=== PATIENT | female | born 1950 | race American Indian/Alaskan Native ===

== ENCOUNTER 2018-07-02 17:53 | Emergency (ER) | payer MEDICARE ==
[2018-07-02 18:09] VITALS: BMI 49.9
[2018-07-02] MEDS ORDERED: Sodium Chloride 0.9% 1,000 ML IV STA (18:14)
--- NOTE | 2018-07-02 18:24 | ED PDOC ---
Arrival/HPI - General Time Seen by Provider: 07/02/18 18:09 Historian: Patient - History of Present Illness Narrative History of Present Illness (Text): 07/02/18 18:24 A 67 year old female, whose past medical history includes cholecystectomy, presents to the ED complaining of worsening right side flank pain. Patient reports pain is worse with any slight movement and talking. Patient notes taking pain medication with no improvement. Patient also mentions she saw her PMD for the same complaint 2 days ago, who gave patient muscle relaxers with no improvement. Patient also notes associated nausea that has resolved. Patient denies any fevers, chills, headache, dizziness, chest pain, shortness of breath, dyspnea on exertion, cough, vomiting, diarrhea, neck pain, urinary/bowel changes, or any other complaints. Time/Duration: 24 hours Symptom Course: Unchanged Activities at Onset: Light Context: Home Past Medical History - Provider Review Nursing Documentation Reviewed: Yes Family/Social History - Physician Review Nursing Documentation Reviewed: Yes Family/Social History: No Known Family HX Allergies/Home Meds Allergies/Adverse Reactions: Allergies No Known Allergies Allergy (Verified 07/02/18 18:10) Review of Systems - Physician Review All systems were reviewed & negative as marked: Yes - Review of Systems Respiratory: absent: SOB Cardiovascular: absent: Chest Pain Gastrointestinal: absent: Stool Changes, Vomiting Musculoskeletal: Other (left side flank pain) Skin: absent: Rash Neurological: absent: Headache, Dizziness Endocrine: absent: Diaphoresis Hemo/Lymphatic: absent: Adenopathy Psychiatric: absent: Anxiety, Depression Physical Exam Vital Signs Reviewed: Yes Vital Signs Temp Pulse Resp BP Pulse Ox 07/02/18 18:14 97.9 F 89 19 143/108 H 96 Temperature: Afebrile Blood Pressure: Hypertensive Pulse: Regular Respiratory Rate: Normal Appearance: Positive for: Well-Appearing, Non-Toxic, Comfortable Pain Distress: Moderate Mental Status: Positive for: Alert and Oriented X 3 - Systems Exam Head: Present: Atraumatic, Normocephalic Pupils: Present: PERRL Extroacular Muscles: Present: EOMI Conjunctiva: Present: Normal Respiratory/Chest: Present: Clear to Auscultation, Good Air Exchange. No: Respiratory Distress, Accessory Muscle Use Cardiovascular: Present: Regular Rate and Rhythm, Murmurs, Normal S1, S2, Other (Patient is hypertensive) Back: Present: Other (Right flank is tender to palpation. Patient in moderate pain.) Psychiatric: Present: Alert, Oriented x 3, Normal Insight, Normal Concentration Medical Decision Making ED Course and Treatment: 07/02/18 18:32 Impression: A 67 year old female who presents to the ED for worsening right side flank pain. Plan: -- Labs -- Abdomen/Pelvis CT -- Reglan -- Morphine -- IV Fluids -- Blood Culture -- Urine Culture -- Urinalysis -- Reassess and disposition Progress Notes: - Medication Orders Current Medication Orders: Sodium Chloride (Sodium Chloride 0.9%) 1,000 mls @ 999 mls/hr IV .Q1H1M STA Stop: 07/02/18 19:14 Discontinued Medications Metoclopramide HCl (Reglan) 10 mg IVP STAT STA Stop: 07/02/18 18:15 Morphine Sulfate (Morphine) 6 mg IVP STAT STA Stop: 07/02/18 18:16 - Scribe Statement The provider has reviewed the documentation as recorded by the Vitor Nixon Provider Scribe Attestation: All medical record entries made by the Tiagoibadilson were at my direction and personally dictated by me. I have reviewed the chart and agree that the record accurately reflects my personal performance of the history, physical exam, medical decision making, and the department course for this patient. I have also personally directed, reviewed, and agree with the discharge instructions and disposition.
[2018-07-02 19:29] LABS: BASO # 0.04 K/mm3 (0.0-2.0); BASO % 0.5 % (0.0-3.0); EOS # 0.1 (0.0-0.7); EOS % 0.8 % (1.5-5.0); HEMOGLOBIN 13.3 g/dL (12.0-16.0); LYMPH % 47.5 % (22.0-35.0); MEAN CELL VOLUME 70.7 fl (80.0-105.0); MEAN CORPUSCULAR HEMOGLOBIN 24.2 pg (25.0-35.0); MEAN CORPUSCULAR HGB CONC 34.2 g/dl (31.0-37.0); MEAN PLATELET VOLUME 10.7 fl (7.0-11.0); MONO # 0.5 (0.1-0.6); MONO % 6.1 % (1.0-6.0); RBC 5.5 10^6/uL (3.5-6.1); RED CELL DISTRIBUTION WIDTH 15.7 % (11.5-14.5); WHITE BLOOD COUNT 8.5 10^3/uL (4.5-11.0)
[2018-07-02 19:38] LABS: INR 0.95; PARTIAL THROMBOPLASTIN TIME 31.6 Seconds (26.9-38.3); PROTHROMBIN TIME 10.5 SECONDS (9.4-12.5)
--- NOTE | 2018-07-02 20:09 | ED PDOC ---
Physical Exam Vital Signs Reviewed: Yes Vital Signs Temp Pulse Resp BP Pulse Ox 07/02/18 18:14 97.9 F 89 19 143/108 H 96 Temperature: Afebrile Blood Pressure: Hypertensive Pulse: Regular Respiratory Rate: Normal Appearance: Positive for: Well-Appearing, Non-Toxic, Comfortable Pain Distress: None Mental Status: Positive for: Alert and Oriented X 3 Medical Decision Making ED Course and Treatment: 07/02/18 20:09: Case endorsed to me by Dr. Varner. Pending chemistry and CT, reassessment and disposition.Patient with hx. right lower back discomfort reproducible/aggravated with movement.Denies any abdominal pain.No urinary complaints.No diarrhea.No fever or chills. 07/02/18 21:41 CT Abd/Pelvis IMPRESSION: 1. Hepatomegaly. 2. A gastric sleeve is identified. 3. Status post cholecystectomy. Mild intrahepatic biliary ductal dilatation. 4. Evidence of diffuse enteritis. 5. Status post hysterectomy. 6. Evidence of multilevel degenerative disc disease as described above. 7. Slight retrograde spondylolisthesis of L5 in relationship to L4 as described above. 07/02/18 23:18 Patient states she feels much better.Discomfort much relieved.Will d/c with full follow up care instructions. I have discussed the results and plan with the patient, who expresses understanding. Patient in agreement with plan to be discharged home. Patient is stable for discharge. Patient was instructed to follow up with physician or return if symptoms worsen or new concerning symptoms arise. - Lab Interpretations Lab Results: PT 10.5 SECONDS (9.4-12.5) 07/02/18 19:24 INR 0.95 07/02/18 19:24 APTT 31.6 Seconds (26.9-38.3) 07/02/18 19:24 - RAD Interpretation Radiology Orders: 07/02/18 18:23 ABDOMEN & PELVIS [ABD & PELVIS IV CONTRAST ONLY] [CT] Stat - Medication Orders Current Medication Orders: Ketorolac Tromethamine (Toradol) 30 mg IVP STAT STA Stop: 07/02/18 20:08 Discontinued Medications Diazepam (Valium) 5 mg PO ONCE ONE; Protocol Stop: 07/02/18 19:55 Sodium Chloride (Sodium Chloride 0.9%) 1,000 mls @ 999 mls/hr IV .Q1H1M STA Stop: 07/02/18 19:14 Last Admin: 07/02/18 19:30 Dose: 999 mls/hr eMAR Start Stop Document 07/02/18 19:30 IT (Rec: 07/02/18 19:30 IT [facility] [id number]) Intravenous Solution Start Date 07/02/18 Start Time 19:30 Metoclopramide HCl (Reglan) 10 mg IVP STAT STA Stop: 07/02/18 18:15 Last Admin: 07/02/18 19:30 Dose: 10 mg IVP Administration Document 07/02/18 19:30 IT (Rec: 07/02/18 19:30 [place] [facility] [id number] Charges for Administration # of IVP Administrations 1 Morphine Sulfate (Morphine) 6 mg IVP STAT STA Stop: 07/02/18 18:16 Last Admin: 07/02/18 19:30 Dose: 6 mg MAR Pain Assessment Document 07/02/18 19:30 IT (Rec: 07/02/18 19:30 IT [facility] [id number]) Pain Reassessment Is this a pain reassessment? No Sleep Is patient sleeping during reassessment? No Presence of Pain Presence of Pain Yes Pain Scale Used Protocol: PSCALES Pain Scale Used Numeric IVP Administration Document 07/02/18 19:30 IT (Rec: 07/02/18 19:30 IT [facility] [id number]) Charges for Administration # of IVP Administrations 1 - Scribe Statement The provider has reviewed the documentation as recorded by the Scribe Mojgan Martino Provider Scribe Attestation: All medical record entries made by the Scribe were at my direction and personally dictated by me. I have reviewed the chart and agree that the record accurately reflects my personal performance of the history, physical exam, medical decision making, and the department course for this patient. I have also personally directed, reviewed, and agree with the discharge instructions and disposition. Disposition/Present on Arrival - Present on Arrival Any Indicators Present on Arrival: No History of DVT/PE: No History of Uncontrolled Diabetes: No Urinary Catheter: No History of Decub. Ulcer: No History Surgical Site Infection Following: None - Disposition Have Diagnosis and Disposition been Completed?: Yes Diagnosis: Lower back pain Disposition: HOME/ ROUTINE Disposition Time: 23:19 Patient Plan: Discharge Patient Problems: Current Active Problems Problem Status Onset Lower back pain Acute Condition: STABLE Discharge Instructions (ExitCare): Low Back Pain (DC) Additional Instructions: rest/no strenuous physical activity/take meds as prescribed/follow up with your doctor this week Prescriptions: oxyCODONE/Acetaminophen [Percocet 5/325 mg Tab] 1 ea PO Q6 PRN #14 tab PRN Reason: Pain, Moderate (4-7) Forms: [facility] (Russian)
[2018-07-02 20:18] VITALS: RESP 18
[2018-07-02 20:39] LABS: ALB/GLOB RATIO 1.1 (1.1-1.8); ALT/SGPT 27 U/L (7-56); AST/SGOT 24 U/L (14-36); BLOOD UREA NITROGEN 16 mg/dL (7-21); CALCIUM 9.6 mg/dL (8.4-10.5); GFR NON-AFRICAN AMERICAN > 60; LIPASE 126 U/L (23-300)
[2018-07-02] MEDS ORDERED: Insulin Regular 1 UNITS/0.01 ML ML ONE (20:44)
[2018-07-02] MEDS ORDERED: Iohexol 350 MG/100 ML VIAL ONE (20:45)
[2018-07-02 21:00] LABS: VENOUS BLOOD GAS BASE EXCESS 5.6 mmol/L (0.0-2.0); VENOUS BLOOD GAS PO2 55 mm/Hg (30-55); VENOUS BLOOD PH 7.36 (7.32-7.43)
[2018-07-02 21:12] LABS: TROPONIN I < 0.01 ng/mL
[2018-07-02 22:05] LABS: URINE BILIRUBIN NEGATIVE (NEGATIVE); URINE BLOOD NEGATIVE (NEGATIVE); URINE GLUCOSE (UA) NEGATIVE (NEGATIVE); URINE LEUKOCYTE ESTERASE NEGATIVE Leu/uL (NEGATIVE); URINE PROTEIN NEGATIVE mg/dL (<30 mg/dL)
[2018-07-02 22:06] LABS: URINE APPEARANCE CLEAR (CLEAR); URINE COLOR LIGHT YELLOW (YELLOW)
[2018-07-02 23:48] VITALS: BP 132/65; PULSE 82; TEMP 98.2; O2SAT 96
--- NOTE | 2018-07-03 11:21 | CT ---
Date of service: 07/02/2018 PROCEDURE: CT Abdomen and Pelvis with contrast HISTORY: right sided flank pain COMPARISON: None. TECHNIQUE: Contrast dose: 100 mL Omnipaque 350 Radiation dose: Total exam DLP = 1234.95 mGy-cm. This CT exam was performed using one or more of the following dose reduction techniques: Automated exposure control, adjustment of the mA and/or kV according to patient size, and/or use of iterative reconstruction technique. FINDINGS: LOWER THORAX: Unremarkable. LIVER: Mild hepatic steatosis. Mild intrahepatic biliary dilatation. GALLBLADDER AND BILE DUCTS: Prior cholecystectomy with surgical clips in place. Prominent CBD measuring up to 1.3 cm. PANCREAS: Unremarkable. No gross lesion or ductal dilatation. SPLEEN: Unremarkable. ADRENALS: Unremarkable. No mass. KIDNEYS AND URETERS: Tiny left renal cysts. No hydronephrosis. No solid mass. VASCULATURE: Unremarkable. No aortic aneurysm. No aortic atherosclerotic calcification or mural plaque present. BOWEL: Small hiatal hernia with postsurgical changes, likely gastric sleeve. No obstruction. No gross mural thickening. APPENDIX: Normal appendix. PERITONEUM: Rectus diastasis with abdominal wall protrusion and superimposed tiny fat containing umbilical hernia. No free fluid. No free air. LYMPH NODES: Unremarkable. No enlarged lymph nodes. BLADDER: Unremarkable. REPRODUCTIVE: Prior hysterectomy. BONES: Multilevel spinal degenerative changes.. Grade 1 anterolisthesis of L4 on L5. No acute fracture. OTHER FINDINGS: None. IMPRESSION: Nonspecific mild intrahepatic ductal dilatation with prominent CBD. Findings may be related to post cholecystectomy state. No obstructive uropathy or evidence of recently passed genitourinary calculus. No acute abdominal pelvic pathology.
== END 2018-07-02 23:48 | disposition home or self-care (01) ==
LOC: ED 17:53 → MERGE 17:53 → ED 23:48
DX: M54.5 Low back pain (principal); Z90.49 Acquired absence of other specified parts of digestive tract
CPT/HCPCS: 74177; 80053; 81003; 82803; 83690; 83735; 84100; 84484; 85025; 85610; 85730; 87040; 87086; 96374; 96375; 99283; J1885; J2270; J2765; J7030; Q9967